=== PATIENT | male | born 1945 | race Two or more races ===

== ENCOUNTER 2020-08-09 14:04 | Outpatient (CLI) | payer OTHER | END 2020-08-09 14:08 | disposition home or self-care (01) | LOC: NUCLEAR 14:04 | PROVIDERS: ATTEND Internal Medicine | DX: M81.0 Age-related osteoporosis without current pathological fracture (principal); Z13.820 Encounter for screening for osteoporosis ==

== ENCOUNTER 2022-04-26 12:15 | Outpatient (CLI) | payer OTHER | END 2022-04-26 12:22 | disposition home or self-care (01) | LOC: RAD 12:15 | PROVIDERS: ATTEND Physical Medicine & Rehabilitation | DX: M16.12 Unilateral primary osteoarthritis, left hip (principal); M54.59 Other low back pain ==

== ENCOUNTER 2022-09-05 13:58 | Outpatient (CLI) | payer OTHER ==
[~2022-09-05 13:58] MED LIST: AMLODIPINE BESY10 MG PO; IBANDRONATE SO150 MG PO; INTESTINEX680 M1 PO; IRBESARTAN-HCT1 EAC1 PO; LEVOFLOXACIN750 MG PO; METOPROLOL SUCC25 MG PO; SIMVASTATIN20 MG PO; TERAZOSIN HCL1 M1 PO
== END 2022-09-05 14:01 | disposition home or self-care (01) ==
LOC: NUCLEAR 13:58
PROVIDERS: ATTEND Internal Medicine Pulmonary Disease
DX: M85.80 Other specified disorders of bone density and structure, unspecified site (principal)

== ENCOUNTER 2023-02-23 15:17 | Outpatient (CLI) | payer OTHER | END 2023-02-23 15:23 | disposition home or self-care (01) | LOC: RAD 15:17 | PROVIDERS: ATTEND Physical Medicine & Rehabilitation | DX: M16.0 Bilateral primary osteoarthritis of hip (principal) ==

== ENCOUNTER 2024-01-16 15:39 | Outpatient (CLI) | payer OTHER | END 2024-01-16 15:40 | disposition home or self-care (01) | LOC: SONOGRAMA 15:39 | DX: E04.1 Nontoxic single thyroid nodule (principal) ==

== ENCOUNTER → 2024-09-16 10:11 | Outpatient (CLI) | payer OTHER | END | disposition home or self-care (01) | LOC: NUCLEAR 09-09 13:45 | DX: Z13.820 Encounter for screening for osteoporosis (principal); M81.0 Age-related osteoporosis without current pathological fracture ==

== ENCOUNTER 2024-09-16 11:14 | Outpatient (CLI) | payer OTHER | END 2024-09-16 11:22 | disposition home or self-care (01) | LOC: RAD 11:14 | PROVIDERS: ATTEND Internal Medicine Cardiovascular Disease | DX: R06.00 Dyspnea, unspecified (principal) ==

== ENCOUNTER → 2024-09-19 11:13 | Outpatient (CLI) | payer OTHER | END | disposition home or self-care (01) | LOC: TOM 11:13 | PROVIDERS: ATTEND Internal Medicine Cardiovascular Disease | DX: R91.1 Solitary pulmonary nodule (principal) ==

== ENCOUNTER 2024-10-07 07:18 | Outpatient (CLI) | payer OTHER | END 2024-10-07 07:19 | disposition home or self-care (01) | LOC: NUCLEAR 07:18 | PROVIDERS: ATTEND Internal Medicine Cardiovascular Disease | DX: I25.118 Atherosclerotic heart disease of native coronary artery with other forms of angina pectoris (principal) | CPT/HCPCS: 78452; 93017; A9500 ==

== ENCOUNTER 2025-04-26 12:56 | Emergency (ER) | payer OTHER ==
[~2025-04-26] VITALS: Ht 170.2 cm; Wt 87.5 kg
[2025-04-26] MEDS ORDERED: EZALLOR SPRINKL10 MG PO (13:18)
[2025-04-26] MEDS ORDERED: METOCLOPRAMIDE HCL 5 MG/ML VIAL IV ONE (14:30)
[2025-04-26] MEDS ORDERED: KETOROLAC TROMETHAMINE 30 MG VIAL IU ONE (14:30)
[2025-04-26] MEDS ORDERED: FAMOTIDINE/PF 20 MG/2 ML VIAL IV ONE (14:30)
[2025-04-26] MEDS ORDERED: TAMSULOSIN HCL 0.4 MG CAP PO ONE ×2 (14:30→15:05)
[2025-04-26] MEDS ORDERED: KETOROLAC TROMETHAMINE 30 MG VIAL ONE (15:04)
[2025-04-26] MEDS ORDERED: FAMOTIDINE/PF 20 MG/2 ML VIAL ONE (15:05)
[2025-04-26] MEDS ORDERED: METOCLOPRAMIDE HCL 5 MG/ML VIAL ONE (15:05)
[2025-04-26 15:48] LABS: BASO % 0.2 % (0.1-1.2); EOS # 0.18 (0.04-0.54); EOS % 2.1 % (0.7-7.0); LYMPH # 1.22 (1.18-3.74); LYMPH % 14.5 % (19.3-53.1); MEAN PLATELET VOLUME 9.20 fl (9.4-12.4); MONO # 0.66 (0.24-0.82); MONO % 7.8 % (4.7-12.5); NEUT # 6.34 (1.56-6.13); NEUT % 75.3 % (34.0-71.1); RED CELL DISTRIBUTION WIDTH 13.7 % (11.6-14.4)
[2025-04-26 16:08] LABS: BUN CREA RATIO 21.0 (7.0-25.0); CREATININE SERUM 1.17 mg/dL (0.70-1.30); GFR 59.98; GLUCOSE FASTING 99.0 mg/dL (65-100); OSMOLALITY SERUM 289.0 MOSM/KG (275-295)
[2025-04-26 16:23] LABS: URINE APPEARANCE Clear; URINE BILIRRUBIN Negative (NEGATIVE); URINE BLOOD Large; URINE COLOR Yellow; URINE GLUCOSE Negative (NEGATIVE); URINE KETONE Negative (NEGATIVE); URINE LEUKOCYTE Trace; URINE NITRATE Negative; URINE PROTEIN Trace (NEGATIVE); URINE UROBILINOGEN 1.0 E.U./dl
[2025-04-26 16:27] LABS: URINE BACTERIA 37.1 uL (0.0-1933); URINE EPITHELIAL CELLS 1.6 uL (0.0-38.8); URINE RBC 2421.1 uL (0.0-20.8); URINE WBC 15.2 uL (0.0-23.2)
[2025-04-26 16:31] LABS: URINE CAST 0.00 uL (0.0-1.40)
[2025-04-26] MEDS ORDERED: IBU400 MG PO (19:13)
[2025-04-26] MEDS ORDERED: LEVOFLOXACIN500 MG PO (19:13)
[2025-04-26] MEDS ORDERED: TAMS0.4C PO (19:13)
[2025-04-26] MEDS ORDERED: PYRIDIUM DS200 MG PO (19:13)
== END 2025-04-26 19:23 | disposition home or self-care (01) ==
LOC: ER 12:57
PROVIDERS: General Practice
DX: N20.0 Calculus of kidney (principal); R31.9 Hematuria, unspecified; M54.9 Dorsalgia, unspecified; R30.0 Dysuria; I10 Essential (primary) hypertension; Z85.46 Personal history of malignant neoplasm of prostate; K57.30 Diverticulosis of large intestine without perforation or abscess without bleeding; K80.20 Calculus of gallbladder without cholecystitis without obstruction
CPT/HCPCS: 36415; 74176; 96365; 99284; J1885; J3490